=== PATIENT | female | born 1940 | race Caucasian/White ===

== ENCOUNTER → 2022-02-27 | Outpatient (CLI) | payer MEDICARE ==
[2016-09-17 08:30] VITALS: BP 122/68
[~2022-02-27] MED LIST: ACET500T68 PO; ASPI325T11 PO; ASPI81TA59 PO; ATEN25TA PO; ATOR20TA58 PO; ATOR40TA59 PO; BUPIVACAINE MPF 0.5% 10 ML VIAL. INT ART ONE; CRAN500C5 PO; DOCU-158 PO; ESTR-113 PO; FOLI1TAB16 PO; FURO20TA3 PO; LIDOCAINE 1% Multi-Dose 20 ML VIAL. ID ONE; LORA0.5T PO; MELO15TA23 PO; METO25TA4 PO; MULT-208 PO; OM-31CAP4 PO; OMEP40CA7 PO; SIMV40TA18 PO; SIMV80TA17 PO; TRAM50TA PO; TRIAMCINOLONE PRES.FREE 40 MG/ML VIAL. INT ART ONE; VITS1TAB2 PO
--- NOTE | 2022-03-03 09:59 | KCIC ---
EXAM: Left elbow joint injection WITH Fluoroscopic guidance DATE: 02/27/2022 3:20 PM CLINICAL HISTORY: Reason: LEFT ELBOW PAIN AND SWELLING X'S 1 YEAR, NO INJURY / Spl. Instructions: FT :11, 1 IMG, 1ML LIDOCAINE, 1ML KENALOG, 2ML BUPIVACAINE / History: COMPARISON: None pertinent TECHNIQUE: The patient was informed of the indications and alternatives for this procedure as well as risks and benefits. No immediate contraindication identified. The patient provided informed, written consent. Laterality was confirmed by the entire team following a time out. Following initial Left elbow joint localization, a suitable area was sterilely prepped and draped. Lo dwayne anesthesia was administered with 1% xylocaine. With intermittent fluoroscopic observation, a 22-g auge spinal needle was advanced into the Left elbow joint sheath/capsule with confirmation of intra-s ynovial position with infusion of less than 1 cc iodinated contrast. Subsequent infusion solution con taining 40 mg Kenalog, 2 mL bupivacaine 0.5% and 1 mL lidocaine 1%. Hemostasis with local pressure. L ocal clinical exam negative for immediate complication. Patient informed re local potential signs or symptoms that may indicate need to return to ER/Ordering physician for further evaluation. Patient informed re precautionary measures after intra-synovial in jection of anesthetic. Patient informed re potential for short term increase local symptomatology due to steroid flare. Patient expressed understanding. Performing Physicians: Dr. Rommel Duffy Blood Loss: 0 cc Total Fluoroscopy time: 11 seconds Total spot images taken: 0 IMPRESSION: Successful intra-synovial injection Left elbow joint with steroid and anesthetic per clinical request . Electronically signed by: Scotty Duffy MD (03/03/2022 9:57 AM) [id number]
== END | disposition home or self-care (01) ==
LOC: KCIC 14:59
PROVIDERS: ATTEND Orthopaedic Surgery Sports Medicine
DX: M25.522 Pain in left elbow (principal); I12.9 Hypertensive chronic kidney disease with stage 1 through stage 4 chronic kidney disease, or unspecified chronic kidney disease; N18.9 Chronic kidney disease, unspecified; E78.00 Pure hypercholesterolemia, unspecified; I25.10 Atherosclerotic heart disease of native coronary artery without angina pectoris; K21.9 Gastro-esophageal reflux disease without esophagitis; M19.90 Unspecified osteoarthritis, unspecified site; F41.9 Anxiety disorder, unspecified; Z90.710 Acquired absence of both cervix and uterus; Z98.890 Other specified postprocedural states; Z79.899 Other long term (current) drug therapy; Z79.82 Long term (current) use of aspirin
CPT/HCPCS: 20605; 77002; J3301; J3490